=== PATIENT | female | born 1940 | race Caucasian/White ===

== ENCOUNTER 2017-07-14 03:59 | Emergency (ER) | payer MEDICARE ==
[~2017-07-14] VITALS: Ht 152.4 cm; Wt 85.7 kg
[~2017-07-14 03:59] MED LIST: DARVOCET-N 1001 EAC1; Z.0.MELOXICAM15 MG; [UNRECOGNIZED DRUG - OTHER]
[2017-07-14 04:38] VITALS: BP 178/88
== END 2017-07-14 04:44 | disposition home or self-care (01) ==
LOC: ER 03:59
DX: M54.6 Pain in thoracic spine (principal); G89.29 Other chronic pain; M79.7 Fibromyalgia
CPT/HCPCS: 99282